=== PATIENT | female | born 1975 | race Caucasian/White ===

== ENCOUNTER 2024-08-26 11:45 | Emergency (ER) | payer MEDICAID, OTHER ==
[~2024-08-26] VITALS: Ht 180.3 cm; Wt 24.9 kg
[2024-08-26 12:36] VITALS: BP 114/75; TEMP 98.1; O2SAT 99
== END 2024-08-26 13:55 | disposition left against medical advice (07) ==
LOC: ER 11:58
DX: R07.9 Chest pain, unspecified (principal)